=== PATIENT | male | born 1980 ===

== ENCOUNTER 2017-04-03 20:53 | Emergency (ER) | payer BC, OTHER ==
[2017-04-04 00:35] VITALS: BP 122/72
--- NOTE | 2017-04-04 12:59 | ED ---
Marshall Pisano Thomas, scribed for Montrell Vincent MD on 04/03/17 at 2154 . Substance Abuse/Use - HPI Summary HPI Summary: This patient is a 36 year old M presenting to [facility] requesting heroin detox. He last used heroin earlier today. He has been using heroin for the last eighteen months. Patient reports vomiting, diaphoresis, decreased appetite, restlessness , auditory hallucinations, insomnia and diarrhea. The patient requests admission for detox. He was previously on suboxone 7-8 years ago. - History Of Current Complaint Chief Complaint: EDDetoxRequest Stated Complaint: DETOX Time Seen by Provider: 04/03/17 21:37 Hx Obtained From: Patient Onset/Duration of Drug/ETOH Abuse: Years - 18 months Ingestion History: Type/Name Of Drug - Heroin Timing Of Abuse: Daily Character: Fearful Aggravating Factor(s): Nothing Alleviating Factor(s): Nothing Associated Signs And Symptoms: Other: - Vomiting, diaphoresis, decreased appetite, restlessness, auditory hallucinations, sleeplessness, and diarrhea Related Hx: Drug/Alcohol Last Used @ - today at 10:00 PMH/Surg Hx/FS Hx/Imm Hx Previously Healthy: No Endocrine/Hematology History: Denies: Hx Diabetes Cardiovascular History: Denies: Hx Hypertension - Surgical History Surgery Procedure, Year, and Place: None Infectious Disease History: No Infectious Disease History: Denies: Traveled Outside the [place] in Last 30 Days - Family History Known Family History: Positive: Diabetes - Social History Occupation: Employed Full-time Hx Substance Use: Yes Substance Use Type: Reports: Heroin Hx Tobacco Use: Yes Review of Systems Constitutional: Other - Restlessness Positive: Skin Diaphoresis. Negative: Fever Gastrointestinal: Other - Decreased appetite Positive: Vomiting, Diarrhea Neurological: Other - Insomnia Positive: Other - Auditory hallucinations All Other Systems Reviewed And Are Negative: Yes Physical Exam - Summary Physical Exam Summary: Appearance: The patient is well-nourished in no acute distress and in no acute pain. He is not animated. He is not in withdrawal. Skin: The skin is warm and dry and skin color reflects adequate perfusion. He is not diaphoretic. There is no piloerection. HEENT: The head is normocephalic and atraumatic. The pupils are small. The conjunctivae are clear and without drainage. Nares are patent and without drainage. Mouth reveals moist mucous membranes and the throat is without erythema and exudate. The external ears are intact. The ear canals are patent and without drainage. The tympanic membranes are intact. Neck: the neck is supple with full range of motion and non-tender. There are no carotid bruits. There is no neck vein distension. Respiratory: Chest is non-tender. Lungs are clear to auscultation and breath sounds are symmetrical and equal. Cardiovascular: Heart is regular rate and rhythm. There is no murmur or rub auscultated. There is no peripheral edema and pulses are symmetrical and equal. Abdomen: The abdomen is soft and non-tender. There are normal bowel sounds heard in all four quadrants and there is no organomegaly palpated. Musculoskeletal: There is no back tenderness noted. Extremities are non-tender with full range of motion. There is good capillary refill. There is no peripheral edema or calf tenderness elicited. Neurological: Patient is alert and oriented to person, place and time. The patient has symmetrical motor strength in all four extremities. Cranial nerves are grossly intact. Deep tendon reflexes are symmetrical and equal in all four extremities. Psychiatric: The patient has an appropriate affect and does not exhibit any anxiety or depression. Triage Information Reviewed: Yes Vital Signs On Initial Exam: Initial Vitals Temp Pulse Resp BP Pulse Ox 97.6 F 82 16 135/84 96 04/03/17 21:06 04/03/17 21:06 04/03/17 21:06 04/03/17 21:06 04/03/17 21:06 Vital Signs Reviewed: Yes Diagnostics - Vital Signs Vital Signs Temp Pulse Resp BP Pulse Ox 04/03/17 21:06 97.6 F 82 16 135/84 96 - Laboratory Lab Statement: Any lab studies that have been ordered have been reviewed, and results considered in the medical decision making process. Course/Dx - Course Course Of Treatment: Mr. Acevedo presented wanting to be admitted for detox from 18 months of daily IV heroin use. That is not an option here aothough we can admit medically if someone is in symptomatic withdrawal. Mr. Acevedo was not visibly withdrawing yet although I didn't doubt that he would be soon if he didn't use. I offered him outpatient meds which he refused. Fortunately, Rimma Giles was on for the hospitalists and he has a suboxone waiver. He was willing to treat Mr. Kristina in the office but he refused that also. His plan currently is to go to [facility] to try to get admitted. - Diagnoses Provider Diagnoses: Narcotic addiction - Physician Notifications Discussed Care Of Patient With: Kevin Shanks Time Discussed With Above Provider: 21:59 Instructed by Provider To: Other - I consulted with Dr. Shanks, hospitalist, who will speak with the patient about care. Discharge - Discharge Plan Condition: Stable Disposition: HOME Prescriptions: Clonidine HCl [Catapres 0.1 MG TAB] 0.1 mg PO DAILY PRN #9 tab PRN Reason: Withdrawal - Opiate LORazepam TAB(*) [Ativan 1 MG TAB (*)] 1 mg PO Q6H PRN #10 tab MDD 2 tabs PRN Reason: Withdrawal Symptoms Patient Education Materials: Narcotic Abuse (ED) Referrals: Kevin Shanks MD [Medical Doctor] - 2 Days Additional Instructions: Follow up with Dr. Shanks on Wednesday, April 05. The documentation as recorded by the Marshall lomas Thomas accurately reflects the service I personally performed and the decisions made by me, Montrell Vincent MD.
== END 2017-04-04 00:35 | disposition home or self-care (01) ==
LOC: ED 20:53
DX: F11.20 Opioid dependence, uncomplicated (principal); R11.10 Vomiting, unspecified; R19.7 Diarrhea, unspecified; G47.00 Insomnia, unspecified
CPT/HCPCS: 99282